=== PATIENT | male | born 1975 | race Caucasian/White ===

== ENCOUNTER 2022-11-01 18:50 | Emergency (ER) | payer SELFPAY ==
[~2022-11-01] VITALS: Ht 167.6 cm; Wt 132.0 kg
[2022-11-01 18:58] VITALS: O2SAT 98
[2022-11-01 21:39] VITALS: BP 148/79; PULSE 94; RESP 18; TEMP 98.9
== END 2022-11-01 21:39 | disposition home or self-care (01) ==
LOC: ER 19:05
DX: R06.02 Shortness of breath (principal); E11.9 Type 2 diabetes mellitus without complications; I10 Essential (primary) hypertension
CPT/HCPCS: 71045; 93005; 99283